=== PATIENT | male | born 1930 | race Caucasian/White ===

== ENCOUNTER 2020-09-06 12:15 | Emergency (ER) | payer OTHER, MEDICARE ==
[~2020-09-06] VITALS: Ht 167.6 cm; Wt 59.9 kg
[2020-09-06 14:28] LABS: BASOPHILS ABSOLUTE AUTO 0.04 K/mm3 (0.00-0.23); BASOPHILS PERCENT AUTO 1 % (0-2); EOSINOPHILS ABSOLUTE AUTO 0.19 K/mm3 (0.00-0.68); EOSINOPHILS PERCENT AUTO 3 % (0-6); Hematocrit 34.3 % (37.0-53.0); IMMATURE GRAN ABSOLUTE AUTO 0.03 K/mm3 (0.00-0.10); IMMATURE GRAN PERCENT AUTO 1 % (0-1); LYMPHOCYTES ABSOLUTE AUTO 1.14 K/mm3 (0.84-5.20); LYMPHOCYTES PERCENT AUTO 17 % (21-46); MONOCYTES ABSOLUTE AUTO 1.04 K/mm3 (0.16-1.47); MONOCYTES PERCENT AUTO 16 % (4-13); Mean Corpuscular HGB 33.8 pg (26.0-34.0); Mean Corpuscular HGB Conc 32.1 g/dL (31.5-36.5); Mean Corpuscular Volume 106 fL (80-100); Mean Platelet Volume 10.5 fL (9.1-12.4); NEUTROPHILS ABSOLUTE AUTO 4.12 K/mm3 (1.96-9.15); NEUTROPHILS PERCENT AUTO 63 % (41-73); Platelet Count 145 K/mm3 (150-400); RDW Coefficient Variation 16.1 % (11.7-14.2); Red Blood Cell Count 3.25 M/mm3 (4.30-5.90); White Blood Cell Count 6.56 K/mm3 (4.00-11.30)
[2020-09-06 14:48] LABS: Albumin, Blood 3.8 g/dL (3.4-5.0); Albumin/Globulin Ratio 0.8 (0.8-1.8); Bilirubin, Total 0.7 mg/dL (0.1-1.0); Bun/Creatinine Ratio 20.3 (12.0-20.0); Creatinine, Blood 1.97 mg/dL (0.60-1.20); Globulin, Blood 4.5 g/dL (2.2-4.0); Potassium, Blood 4.4 mmol/L (3.5-5.5); Total Protein, Blood 8.3 g/dL (6.4-8.2)
[2020-09-06] MEDS ORDERED: Amlodipine Bes2.5 MG PO (18:47)
[2020-09-06] MEDS ORDERED: Zyloprim100 MG PO (18:47)
[2020-09-06] MEDS ORDERED: ASCO500 PO (18:48)
[2020-09-06] MEDS ORDERED: ELIQUIS2.5 MG PO (18:48)
[2020-09-06] MEDS ORDERED: LIPITOR10 MG PO (18:49)
[2020-09-06] MEDS ORDERED: NOVOLOG100 UNIT/3 SC (18:51)
[2020-09-06] MEDS ORDERED: INSULANPEN SC (18:59)
[2020-09-06] MEDS ORDERED: LATANOPROST BOTHEYES (19:00)
[2020-09-06] MEDS ORDERED: POTA10T PO (19:03)
[2020-09-06] MEDS ORDERED: TORSE20 PO (19:05)
[2020-09-06] MEDS ORDERED: Hair, Skin & N1 EACH PO (20:01)
[2020-09-06] MEDS ORDERED: LOSA25 PO (20:01)
[2020-09-06] MEDS ORDERED: METO25ER PO (20:01)
[2020-09-06 23:34] LABS: CHOL/HDL RATIO 2.4; Cholesterol 128 mg/dL (50-200); HDL Cholesterol 54 mg/dL (>39); LDL/HDL RATIO 1.1; Low Density Lipoprotein Chol 57 mg/dL (0-110); Triglycerides 85 mg/dL (30-160); Very Low Density Lipoprot Chol 17 mg/dL (6-32)
== END 2020-09-07 00:14 | disposition home or self-care (01) ==
LOC: ER 12:15
PROVIDERS: Emergency Medicine; Family Medicine
DX: I71.4 Abdominal aortic aneurysm, without rupture (principal); R77.8 Other specified abnormalities of plasma proteins; N18.9 Chronic kidney disease, unspecified; Z87.891 Personal history of nicotine dependence; Z98.890 Other specified postprocedural states; Z79.01 Long term (current) use of anticoagulants; Z79.4 Long term (current) use of insulin; Z79.899 Other long term (current) drug therapy
CPT/HCPCS: 74175; 80053; 80061; 84484; 85025; 93005; 93010; 99285-25; J7030; Q9967

== ENCOUNTER 2020-10-26 17:49 | Inpatient (IN) | payer OTHER, MEDICARE ==
[~2020-10-26] VITALS: Ht 167.6 cm; Wt 62.7 kg
[~2020-10-26 17:49] MED LIST: ASCO500 PO; Amlodipine Bes2.5 MG PO; DOXY100 PO; ELIQUIS2.5 MG PO; Hair, Skin & N1 EACH PO; INSULANPEN SC; LATANOPROST BOTHEYES; LIPITOR10 MG PO; LOSA25 PO; METO25ER PO; NOVOLOG100 UNIT/3 SC; POTA10T PO; TORSE20 PO; Zyloprim100 MG PO
[2020-10-26] MEDS ORDERED: LEVSOD25 PO (18:24)
[2020-10-26 18:35] LABS: BASOPHILS ABSOLUTE AUTO 0.08 K/mm3 (0.00-0.23); BASOPHILS PERCENT AUTO 1 % (0-2); EOSINOPHILS PERCENT AUTO 17 % (0-6); Hematocrit 33.6 % (37.0-53.0); Hemoglobin 10.9 g/dL (13.5-17.5); IMMATURE GRAN ABSOLUTE AUTO 0.04 K/mm3 (0.00-0.10); IMMATURE GRAN PERCENT AUTO 1 % (0-1); LYMPHOCYTES ABSOLUTE AUTO 1.14 K/mm3 (0.84-5.20); LYMPHOCYTES PERCENT AUTO 13 % (21-46); MONOCYTES ABSOLUTE AUTO 0.97 K/mm3 (0.16-1.47); MONOCYTES PERCENT AUTO 11 % (4-13); Mean Corpuscular HGB Conc 32.4 g/dL (31.5-36.5); Mean Corpuscular Volume 105 fL (80-100); Mean Platelet Volume 10.6 fL (9.1-12.4); NEUTROPHILS ABSOLUTE AUTO 5.01 K/mm3 (1.96-9.15); NEUTROPHILS PERCENT AUTO 57 % (41-73); Platelet Count 180 K/mm3 (150-400); RDW Coefficient Variation 15.9 % (11.7-14.2); RDW Standard Deviation 61.1 fL (35.1-46.3); Red Blood Cell Count 3.21 M/mm3 (4.30-5.90); White Blood Cell Count 8.74 K/mm3 (4.00-11.30)
[2020-10-26 18:54] LABS: Albumin, Blood 3.5 g/dL (3.4-5.0); Albumin/Globulin Ratio 0.7 (0.8-1.8); Bilirubin, Total 0.8 mg/dL (0.1-1.0); Creatinine, Blood 2.71 mg/dL (0.60-1.20); Globulin, Blood 4.7 g/dL (2.2-4.0); Potassium, Blood 4.5 mmol/L (3.5-5.5); Total Protein, Blood 8.2 g/dL (6.4-8.2); Troponin I 0.057 ng/mL (0.000-0.040)
[2020-10-26 19:41] LABS: SARS-Cov-2 (COVID-19) PCR, MMC NEGATIVE (NEGATIVE)
--- NOTE | 2020-10-27 06:32 | NUR ---
SHIFT SUMMARY PT WAS A NEW ADMIT DURING THE NIGHT, ARRIVING ON THE FLOOR AT 2207. HE WAS ADMITTED FOR CHRISTIANO, AND INCREASING SOB AND WEAKNESS AFTER AN AORTIC STENT PLACEMENT TWO WEEKS AGO. PT IS A&O X 3, MILDLY FORGETFUL AT TIMES, 1PA TO THE BATHROOM. NO C/O ACUTE PAIN OR NAUSEA, PT DOES REPORT MILD DYSPNEA WITH EXERTION. CURRENTLY ON 2L O2 VIA NC, SATTING > 90%. VITAL SIGNS STABLE. NO ACUTE CHANGES IN PT CONDITION NOTED SINCE ADMISSION. WILL CONTINUE TO MONITOR AND TREAT PER EMAR UNTIL HAND OFF TO DAY SHIFT RN.
[2020-10-27 07:16] LABS: BASOPHILS PERCENT AUTO 1 % (0-2); EOSINOPHILS ABSOLUTE AUTO 2.53 K/mm3 (0.00-0.68); EOSINOPHILS PERCENT AUTO 26 % (0-6); Hematocrit 31.8 % (37.0-53.0); Hemoglobin 10.2 g/dL (13.5-17.5); IMMATURE GRAN ABSOLUTE AUTO 0.03 K/mm3 (0.00-0.10); IMMATURE GRAN PERCENT AUTO 0 % (0-1); LYMPHOCYTES ABSOLUTE AUTO 1.04 K/mm3 (0.84-5.20); LYMPHOCYTES PERCENT AUTO 11 % (21-46); MONOCYTES ABSOLUTE AUTO 1.26 K/mm3 (0.16-1.47); MONOCYTES PERCENT AUTO 13 % (4-13); Mean Corpuscular HGB 33.7 pg (26.0-34.0); Mean Corpuscular HGB Conc 32.1 g/dL (31.5-36.5); Mean Corpuscular Volume 105 fL (80-100); Mean Platelet Volume 10.4 fL (9.1-12.4); NEUTROPHILS ABSOLUTE AUTO 4.69 K/mm3 (1.96-9.15); NEUTROPHILS PERCENT AUTO 49 % (41-73); Platelet Count 165 K/mm3 (150-400); RDW Coefficient Variation 15.8 % (11.7-14.2); RDW Standard Deviation 59.8 fL (35.1-46.3); Red Blood Cell Count 3.03 M/mm3 (4.30-5.90); White Blood Cell Count 9.65 K/mm3 (4.00-11.30)
[2020-10-27 07:30] LABS: Bun/Creatinine Ratio 20.5 (12.0-20.0); Calcium, Blood 8.9 mg/dL (8.5-10.1); Creatinine, Blood 2.64 mg/dL (0.60-1.20); Potassium, Blood 4.1 mmol/L (3.5-5.5)
[2020-10-27] MEDS ORDERED: ALBU90OI INH (11:52)
--- NOTE | 2020-10-27 14:15 | NUR ---
I WENT TO CHECK ON THE PATIENT AND HE WAS GASPING FOR AIR STATING THAT HE COULD NOT BREATHE. I CALLED FOR MY REDUCTION FURNACE OPERATOR HELPER TO GRABBED A SET OF VITALS. THE PATIENT HAD DESATED TO THE LOW 80s, BP WAS IN THE 170s OVER 100 AND HR IN THE ONE-TEENS. I CRANKED UP HIS OXYGEN ALL THE WAY TO 15L AND THEN WENT TO GET A NRB. AT THIS TIME I ALSO ASKED THE ACC TO CALL A RAPID. IT TOOK A FEW MINUTES BUT THE PATIENTS O2 SATS DID EVENTUALLY GET BACK TO >/= 90%. ONCE PATIENT WAS STABILIZED DR JUNIOR PLACED NEW ORDERS FOR A ONE TIME ORDER OF NITRO PASTE, ONE INCH, AN EKG, TELEMETRY, A 1V CHEST XRAY AND FOR THE PATIENT TO BE PLACED ON BIpAP. ORDERS COMPLETED INSTRUCTED. PATIENT IS NOW ON TELEMETRY RUNNING "IRREGULAR WITH AN INVERTED T-WAVE". HE IS RESTING IN HIS BED AT THIS TIME. CALL LIGHT IS WITHIN REACH.
--- NOTE | 2020-10-27 14:37 | NUR ---
PATIENTS DAUGHTER WILLIAM CALLED ASKING FOR AN UPDATE; AN UPDATE PROVIDED TO HER.
[2020-10-27 16:00] LABS: Bun/Creatinine Ratio 20.6 (12.0-20.0); Calcium, Blood 9.2 mg/dL (8.5-10.1); Creatinine, Blood 2.53 mg/dL (0.60-1.20); Potassium, Blood 4.5 mmol/L (3.5-5.5)
--- NOTE | 2020-10-28 04:28 | NUR ---
DURABLE MEDICAL EQUIPMENT TECHNICIAN SUMMARY PT A/O X4, ABLE TO MAKE NEEDS KNOWN. SLEPT WELL TONIGHT. A. FIB IN THE 70'S- 80'S PER PAY CLERK. DENIES CHEST PAIN, SOB. PT HAS BEEN ON 8L O2 VIA HIGH FLOW SATTING 95-97% ALL NIGHT. DESATS TO THE LOW 90'S WHEN UP. AMBULATES WITH SBA TO THE BATHROOM. CALL LIGHT WITHIN REACH, WILL CONTINUE TO MONITOR.
[2020-10-28 06:02] LABS: Bun/Creatinine Ratio 20.2 (12.0-20.0); Creatinine, Blood 2.48 mg/dL (0.60-1.20); Potassium, Blood 4.1 mmol/L (3.5-5.5)
[2020-10-28 13:47] LABS: Bun/Creatinine Ratio 18.9 (12.0-20.0); Calcium, Blood 9.4 mg/dL (8.5-10.1); Creatinine, Blood 2.43 mg/dL (0.60-1.20); Potassium, Blood 4.4 mmol/L (3.5-5.5)
--- NOTE | 2020-10-28 14:37 | NUR ---
evaluated by brian jensen, arranged for OT, PT and RT to evaluate found pt continues to require 02 even when lying down 3L up to 5L with execise, informed discharge planning, who already had heard [facility]), will await for safe discharge prior to sending pt home
--- NOTE | 2020-10-28 15:51 | NUR ---
Patient is lying in bed and alert. Patient immediately shares about his mediacl issues, his family and about his [employer] kisha. Patient is kind and mindful of others. He shares his concerns for how others are impacted by his health needs. I encourage self-care, and provide therapeutic listening, pastoral nutrition counselor and prayer. Patient responds well and shows signs of being encouraged in his kisha.
--- NOTE | 2020-10-28 17:56 | NUR ---
a+o, down to 2 L via nc while resting, still destats with activity, currently resting comfortably in bed eating supper and watching tv while talking on the phone, will continue to monitor and treat until share report with noc nurse
--- NOTE | 2020-10-29 04:22 | NUR ---
SALES CENTER ASSOCIATE SUMMARY PT A/O X4, SLEPT WELL TONIGHT. PT ON 1.5 L ALL NIGHT VIA HFNC SATTING IN THE LOW TO MID 90'S. SOB AND DESAT WITH ACTITY. DENIES PAIN, NAUSEA, DIZZNIESS. VSS. A. FIB IN THE LOW 70'S PER PATENT EXAMINER. ABLE TO MAKE NEEDS KNOWN. CALL LIGHT WITHIN REACH, WILL CONTINUE TO MONITOR.
[2020-10-29 05:48] LABS: Bun/Creatinine Ratio 18.8 (12.0-20.0); Calcium, Blood 8.9 mg/dL (8.5-10.1); Creatinine, Blood 2.39 mg/dL (0.60-1.20); Potassium, Blood 3.8 mmol/L (3.5-5.5)
--- NOTE | 2020-10-29 14:13 | NUR ---
took off 02 prior to getting ready to leave pt was doing well until he started to get dressed/undress then he dstated as he had been with activity for days, nc at 4L brought him back up to 92% within 3 minutes, daughter was worried but father insisted that he was ready to go home, nurse brought him down to car, once in placed pt on 2L via nc for ride home, he stated he did not need it but was willing to do it. asked daughter to use the o2 to help pt get back into home, will call to confirm safe arrival home
--- NOTE | 2020-10-29 14:16 | NUR ---
Received palliative consult about 2 hrs before pt discharged for filling assisting with POLST, and advanced care planning. 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 Once retired, he and his spent 22 years traveling the country in a fifth wheel, even taking his grandchildren one semester and teaching them while they traveled. "Nikolas" is a very well-spoken gentleman who tells me he has always been fiercely independent. He and his are currently living in the same house as their daughter. He tells me he and his have always taken care of each other, and he is not on board with his daughter's suggestion of hospice services. Nikolas has a history of CKD,CAD, and CHF. He was admitted after elevated troponin labs on routine labwork. No further evidence of ACS, but pt is also experiencing increased SOB. Home 02, FWW and Home Health ordered for pt. His daughter was hoping to get hospice for the patient, but he doesn't feel ready, and I doubt he would qualify at this time. However he would benefit greatly with HH services, as he needs instruction and assistance with med management, he is new to oxygen, as well as deconditioned. Plan to assist pt and family with advanced care planning on an outpatient basis.
== END 2020-10-29 13:54 | disposition home health service (06) | DRG 291 ==
LOC: ER 17:49 → MEDS 17:50 → ENPENDDIS 10-29 10:21 → MEDS 10-29 13:54
PROVIDERS: Emergency Medicine; Student in an Organized Health Care Education/Training Program; ADMIT Family Medicine
PROC: 5A09357 Assistance with Respiratory Ventilation, Less than 24 Consecutive Hours, Continuous Positive Airway Pressure (ICD-10-PCS; principal; 2020-10-28)
DX: I13.0 Hypertensive heart and chronic kidney disease with heart failure and stage 1 through stage 4 chronic kidney disease, or unspecified chronic kidney disease (principal); J18.9 Pneumonia, unspecified organism; I50.33 Acute on chronic diastolic (congestive) heart failure; J96.01 Acute respiratory failure with hypoxia; N17.9 Acute kidney failure, unspecified; N18.4 Chronic kidney disease, stage 4 (severe); R65.10 Systemic inflammatory response syndrome (SIRS) of non-infectious origin without acute organ dysfunction; I24.8 Other forms of acute ischemic heart disease; E11.22 Type 2 diabetes mellitus with diabetic chronic kidney disease; E03.9 Hypothyroidism, unspecified; N40.0 Benign prostatic hyperplasia without lower urinary tract symptoms; D63.1 Anemia in chronic kidney disease; Z20.822 Contact with and (suspected) exposure to COVID-19; G47.30 Sleep apnea, unspecified; M10.9 Gout, unspecified; H40.9 Unspecified glaucoma; I48.91 Unspecified atrial fibrillation; I25.10 Atherosclerotic heart disease of native coronary artery without angina pectoris; Z95.5 Presence of coronary angioplasty implant and graft; Z79.01 Long term (current) use of anticoagulants; Z98.890 Other specified postprocedural states; Z88.0 Allergy status to penicillin; Z79.4 Long term (current) use of insulin; Z79.899 Other long term (current) drug therapy
CPT/HCPCS: 36415; 71045; 71046; 76770; 76775; 80048; 80053; 82947; 83880; 84145; 84484; 85025; 93005; 93010; 94660; 94761; 94762; 96375; 96376; 97110; 97161; 97165; 97535; 99285-25; A9270; C8929; G0378; J0696; J1815; J1940; J7050; Q9957; U0004